=== PATIENT | female | born 1995 | race Two or more races ===

== ENCOUNTER 2017-01-02 14:13 | Inpatient (IN) | payer MEDICAID ==
[~2017-01-02] VITALS: Ht 167.6 cm; Wt 102.2 kg
[2017-01-02 14:58] LABS: Basophils # (auto) 0 uL; DEFINITIVE VIEW TRANSMISSION; Eosinophils # (auto) 0 uL; Hematocrit 44.3 % (36.0-46.0); Hemoglobin 14.5 g/dL (12.2-16.2); Lymphocytes # (auto) 1.2 uL; Lymphocytes % (auto) 6.4 % (10.0-50.0); Mean Corpuscular Hgb Conc. 32.7 g/dL (32.0-36.0); Mean Corpuscular Volume 76.4 fL (80.0-100.0); Mean Platelet Volume 10.2 fL (7.4-10.4); Monocytes # (auto) 0.8 uL; Monocytes % (auto) 4.3 % (0.0-12.0); Neutrophils # (auto) 16.9 uL; Neutrophils % (auto) 89.3 % (37.0-80.0); Platelet Count (auto) 300 10^3/uL (140-450); Red Cell Distribution Width 14.8 % (11.6-16.0); White Blood Cell 18.9 10^3/uL (4.4-10.8)
[2017-01-02] MEDS ORDERED: SODIUM CHLORIDE 0.9% 1,000 ML IVB ONE (15:01)
[2017-01-02] MEDS ORDERED: IBUPROFEN 600 MG TAB PO ONE ×2 (15:14→15:30)
[2017-01-02] MEDS ORDERED: METOCLOPRAMIDE HCL 5MG/ml INJ 2ml VIAL IV ONE (15:15)
[2017-01-02] MEDS ORDERED: NALBUPHINE HCL 10 MG/1ml INJECTION IV ONE (15:15)
[2017-01-02 15:28] LABS: Albumin 3.9 g/dL (3.4-5.0); BUN/Creatinine Ratio 8.8; Bilirubin, Total 0.4 mg/dL (0.2-1.0); Calcium 8.5 mg/dL (8.5-10.1); Potassium 3.5 mmol/L (3.5-5.1)
[2017-01-02 15:35] LABS: Urine Bilirubin Negative (Negative); Urine Color Brown (Yellow); Urine Glucose TRACE mg/dL (Normal); Urine Mucus FEW (None Seen); Urine Nitrite Negative (Negative); Urine RBC 248 /hpf (0 - 4); Urine Squamous Epithelial Cell MANY /hpf (<5); Urine Urobilinogen Normal (Negative)
[2017-01-02 15:38] LABS: Magnesium 2.1 mg/dL (1.6-2.6)
[2017-01-02 15:40] LABS: Urine Blood 3+ /uL (Negative); Urine Ketone 2+ (Negative)
[2017-01-02] MEDS ORDERED: ACETAMINOPHEN 500 MG TAB PO PRN (17:00)
[2017-01-02] MEDS ORDERED: cefTRIAXone 1GM/50ML D5W 50 ML IV ONE ×2 (17:00)
[2017-01-02] MEDS ORDERED: HYDROcodone-ACET 5/325MG TAB PO PRN (17:00)
[2017-01-02] MEDS ORDERED: MORPHINE SULF INJ 2 MG/ML SYRINGE 1ML IV PRN (17:00)
[2017-01-02] MEDS ORDERED: NITROGLYCERIN 0.4 MG SL TAB SL PRN (17:00)
[2017-01-02] MEDS ORDERED: LORazepam 0.5 MG TAB PO PRN (17:00)
[2017-01-02] MEDS ORDERED: PANTOPRAZOLE SODIUM 40 MG/10 ML VIAL IV ONE (18:00)
[2017-01-02] MEDS: HYDROCORTISONE SOD SUCC 100 MG/2ML INJ VIAL IV SCH (18:31)
[2017-01-02] MEDS: FAMOTIDINE (10MG/ML) 2ML VL IV SCH (18:31)
[2017-01-02] MEDS: SODIUM CHLORIDE 0.9% 1,000 ML IV SCH (18:32)
[2017-01-02] MEDS: metroNIDAZOLE 500MG/100ML 100 ML IV SCH ×2 (18:32→23:59)
[2017-01-02 20:00] VITALS: BP 102/62
[2017-01-02 20:23] LABS: Hematocrit 38.8 % (36.0-46.0); Hemoglobin 12.9 g/dL (12.2-16.2)
[2017-01-02] MEDS: MORPHINE SULF INJ 2 MG/ML SYRINGE 1ML IV PRN (21:14)
[2017-01-02 22:37] VITALS: BP 102/62
[2017-01-03] VITALS (7 sets, daily range): BP systolic 94–116; BP diastolic 47–63
[2017-01-03] MEDS: HYDROCORTISONE SOD SUCC 100 MG/2ML INJ VIAL IV SCH ×3 (00:57→17:00)
[2017-01-03] MEDS: TEMAZEPAM 15 MG CAP PO PRN ×2 (01:33→20:37)
[2017-01-03] MEDS: MORPHINE SULF INJ 2 MG/ML SYRINGE 1ML IV PRN ×5 (01:33→20:17)
[2017-01-03 02:14] LABS: Hemoglobin 12.4 g/dL (12.2-16.2)
[2017-01-03] MEDS: FAMOTIDINE (10MG/ML) 2ML VL IV SCH (04:51)
[2017-01-03] MEDS: PROCHLORPERAZINE EDISYLATE 5 MG/ML 2ML VIAL IV PRN ×2 (04:57→10:59)
[2017-01-03 05:48] LABS: Basophils # (auto) 0 uL; DEFINITIVE VIEW TRANSMISSION; Eosinophils # (auto) 0 uL; Hematocrit 36.8 % (36.0-46.0); Hemoglobin 12.6 g/dL (12.2-16.2); Lymphocytes # (auto) 0.6 uL; Mean Corpuscular Hemoglobin 26.1 pg (28.0-32.0); Mean Corpuscular Hgb Conc. 34.1 g/dL (32.0-36.0); Mean Corpuscular Volume 76.5 fL (80.0-100.0); Mean Platelet Volume 10.7 fL (7.4-10.4); Monocytes # (auto) 0.3 uL; Monocytes % (auto) 2.7 % (0.0-12.0); Neutrophils # (auto) 10.8 uL; Neutrophils % (auto) 92.3 % (37.0-80.0); Platelet Count (auto) 219 10^3/uL (140-450); Red Cell Distribution Width 14.8 % (11.6-16.0); White Blood Cell 11.7 10^3/uL (4.4-10.8)
[2017-01-03] MEDS: metroNIDAZOLE 500MG/100ML 100 ML IV SCH (05:54)
[2017-01-03] MEDS: SODIUM CHLORIDE 0.9% 1,000 ML IV SCH ×2 (05:54→14:10)
[2017-01-03 06:55] LABS: Hematocrit 34.4 % (36.0-46.0); Hemoglobin 11.4 g/dL (12.2-16.2)
[2017-01-03] MEDS ORDERED: cefTRIAXone 1GM/50ML D5W 50 ML IV SCH (09:00)
[2017-01-03] MEDS ORDERED: PANTOPRAZOLE SODIUM 40 MG/10 ML VIAL IV SCH (10:00)
[2017-01-03] MEDS ORDERED: GOLYTELY 4L KIT PO ONE (12:00)
[2017-01-03] MEDS ORDERED: POTASSIUM CHL 20MEQ/100ML 100 ML IV ONE (14:30)
[2017-01-03] MEDS ORDERED: ONDANSETRON HCL 4 MG/2 ML VIAL IV PRN (14:30)
[2017-01-03 15:07] LABS: Partial Thromboplastin Time 34.8 sec (22.64-33.71)
[2017-01-03 15:28] LABS: INR 1.22 (0.9-1.15); Prothrombin Time 13.2 sec (9.37-12.3)
[2017-01-03] MEDS: METOCLOPRAMIDE HCL 5MG/ml INJ 2ml VIAL IV SCH (18:27)
[2017-01-03] MEDS: POTASSIUM CHLORIDE 20 MEQ in D5W/LACTATED RINGERS 1,000 ML IV SCH (20:18)
[2017-01-03] MEDS: PANTOPRAZOLE 40 MG TAB PO SCH (21:40)
[2017-01-04] MEDS: METOCLOPRAMIDE HCL 5MG/ml INJ 2ml VIAL IV SCH ×5 (00:01→16:52)
[2017-01-04] MEDS: MORPHINE SULF INJ 2 MG/ML SYRINGE 1ML IV PRN ×2 (00:48→08:45)
[2017-01-04] MEDS: HYDROCORTISONE SOD SUCC 100 MG/2ML INJ VIAL IV SCH ×3 (01:10→16:52)
[2017-01-04 05:00] VITALS: BP 121/69
[2017-01-04 06:10] LABS: Potassium 3.5 mmol/L (3.5-5.1)
[2017-01-04 06:16] LABS: BUN/Creatinine Ratio 10.4; Magnesium 2.4 mg/dL (1.6-2.6)
[2017-01-04] MEDS ORDERED: LIDOCAINE VISCOUS 2% 15ML UD ONE (08:13)
[2017-01-04] MEDS ORDERED: diphenhdrAMINE HCL 50 MG/1 ML VL ONE (08:13)
[2017-01-04] MEDS ORDERED: SODIUM CHLORIDE LOCK 10 ML ONE (08:13)
[2017-01-04 09:00] VITALS: BP 125/70
[2017-01-04] MEDS: PANTOPRAZOLE 40 MG TAB PO SCH (10:00)
[2017-01-04] MEDS: POTASSIUM CHLORIDE 20 MEQ in D5W/LACTATED RINGERS 1,000 ML IV SCH (10:01)
[2017-01-04] MEDS: MIDAZOLAM HCL 5 MG/ML-1ML VIAL ONE ×4 (12:07→12:18)
[2017-01-04] MEDS: fentaNYL CITRATE 100 MCG/2 ML VL ONE ×4 (12:07→12:18)
[2017-01-04] MEDS: SULFASALAZINE 500 MG TAB PO SCH ×2 (14:16→16:53)
[2017-01-04] MEDS ORDERED: SUL500T PO (14:27)
[2017-01-04] MEDS ORDERED: PANT40T PO (14:27)
[2017-01-04 16:21] VITALS: BP 104/53
[2017-01-05] MEDS ORDERED: PANTOPRAZOLE 40 MG TAB PO SCH (10:00)
== END 2017-01-04 17:55 | disposition home or self-care (01) | DRG 241 ==
LOC: ER 14:13 → TELE 14:14 → TELE-WESTW 18:06 → WEST WING 01-03 23:59
PROVIDERS: ADMIT Internal Medicine; ATTEND Hospitalist
PROC: 0DBE8ZX Excision of Large Intestine, Via Natural or Artificial Opening Endoscopic, Diagnostic (ICD-10-PCS; 2017-01-04)
PROC: 0DB68ZX Excision of Stomach, Via Natural or Artificial Opening Endoscopic, Diagnostic (ICD-10-PCS; principal; 2017-01-04 12:05)
PROC: 0DBB8ZX Excision of Ileum, Via Natural or Artificial Opening Endoscopic, Diagnostic (ICD-10-PCS; 2017-01-04 12:05)
DX: K29.80 Duodenitis without bleeding (principal); N10 Acute pyelonephritis; E11.9 Type 2 diabetes mellitus without complications; K50.90 Crohn's disease, unspecified, without complications; K52.9 Noninfective gastroenteritis and colitis, unspecified; E78.5 Hyperlipidemia, unspecified; E86.0 Dehydration; Z82.49 Family history of ischemic heart disease and other diseases of the circulatory system; Z82.5 Family history of asthma and other chronic lower respiratory diseases; Z83.3 Family history of diabetes mellitus; Z87.891 Personal history of nicotine dependence; F32.9 Major depressive disorder, single episode, unspecified
CPT/HCPCS: 36415; 43239; 45380; 71010; 74176; 80048; 80053; 81001; 81025; 82270; 83605; 83690; 83735; 84443; 84702; 85014; 85018; 85025; 85045; 85610; 85652; 85730; 86141; 86850; 86900; 86901; 87040; 87086; 87493; 96361; 96365; 96375; C9113; J0696; J2250; J2405; J3480; J3490

== ENCOUNTER 2017-09-12 17:49 | Emergency (ER) | payer MEDICAID ==
[~2017-09-12] VITALS: Ht 165.1 cm; Wt 104.3 kg
[~2017-09-12 17:49] MED LIST: PANT40T PO; SUL500T PO
[2017-09-12 18:02] VITALS: BP 99/64
== END 2017-09-12 21:35 | disposition home or self-care (01) ==
LOC: ER 17:49
DX: J02.9 Acute pharyngitis, unspecified (principal); J45.909 Unspecified asthma, uncomplicated; I10 Essential (primary) hypertension

== ENCOUNTER 2018-10-29 08:13 | Emergency (ER) | payer MEDICAID ==
[~2018-10-29] VITALS: Ht 175.3 cm; Wt 101.2 kg
[2018-10-29 08:53] LABS: Urine Bacteria FEW /hpf (None Seen); Urine Blood TRACE /uL (Negative); Urine Mucus FEW (None Seen); Urine Specific Gravity 1.009 (1.001-1.035); Urine WBC 1 /hpf (0 - 5)
[2018-10-29 09:09] LABS: Eosinophils # (auto) 0 uL; Eosinophils % (auto) 0.3 % (0.0-7.0); Hematocrit 37.4 % (36.0-46.0); Lymphocytes # (auto) 1.9 uL; Monocytes # (auto) 0.5 uL; Neutrophils # (auto) 9.1 uL; White Blood Cell 11.6 10^3/uL (4.4-10.8)
[2018-10-29 09:10] LABS: Basophils # (auto) 0.1 uL; Basophils % (auto) 0.4 % (0.0-2.0); Hemoglobin 12.4 g/dL (12.2-16.2); Lymphocytes % (auto) 16.2 % (10.0-50.0); Mean Corpuscular Hemoglobin 24.6 pg (28.0-32.0); Mean Corpuscular Hgb Conc. 33.2 g/dL (32.0-36.0); Mean Corpuscular Volume 74.2 fL (80.0-100.0); Monocytes % (auto) 4.3 % (0.0-12.0); Neutrophils % (auto) 78.8 % (37.0-80.0); Nucleated Red Blood Cells % 0.1 %; Platelet Count (auto) 299 10^3/uL (140-450); Red Blood Cells 5.03 10^6/uL (4.0-5.20); Red Cell Distribution Width 15.1 % (11.8-14.3)
[2018-10-29 09:25] LABS: Albumin 3.8 g/dL (3.4-5.0); BUN/Creatinine Ratio 10.4; Calcium 8.4 mg/dL (8.5-10.1); Potassium 3.5 mmol/L (3.5-5.1)
[2018-10-29 09:28] LABS: Bilirubin, Total 0.4 mg/dL (0.2-1.0); Total Protein 8.1 g/dL (6.4-8.2)
[2018-10-29] MEDS ORDERED: SODIUM CHLORIDE 0.9% 1,000 ML IVB ONE (10:46)
[2018-10-29] MEDS ORDERED: PROCHLORPERAZINE EDISYLATE 5 MG/ML 2ML VIAL IV ONE (11:00)
[2018-10-29 11:28] LABS: Magnesium 2.4 mg/dL (1.6-2.6)
[2018-10-29 14:40] VITALS: BP 108/69
== END 2018-10-29 15:02 | disposition home or self-care (01) ==
LOC: ER 08:13
DX: F12.10 Cannabis abuse, uncomplicated (principal); R11.2 Nausea with vomiting, unspecified; R19.7 Diarrhea, unspecified; K21.9 Gastro-esophageal reflux disease without esophagitis; I10 Essential (primary) hypertension; E11.9 Type 2 diabetes mellitus without complications; J45.909 Unspecified asthma, uncomplicated
CPT/HCPCS: 36415; 76705; 80053; 81001; 81025; 83690; 83735; 85025; 96361; 96374; 99284; J0780; J7030

== ENCOUNTER 2019-05-30 16:11 | Emergency (ER) | payer MEDICAID ==
[~2019-05-30] VITALS: Ht 175.3 cm; Wt 89.8 kg
[2019-05-30 16:30] VITALS: BP 116/82
[2019-05-30] MEDS ORDERED: KETOROLAC TROMETH 60MG/2ML VIAL IM ONE (20:30)
[2019-05-30] MEDS ORDERED: METHOCARBAMOL 500 MG TAB PO ONE (22:32)
== END 2019-05-30 22:51 | disposition home or self-care (01) ==
LOC: ER 16:15
DX: M54.6 Pain in thoracic spine (principal); M79.18 Myalgia, other site; J45.909 Unspecified asthma, uncomplicated; E11.9 Type 2 diabetes mellitus without complications; K21.9 Gastro-esophageal reflux disease without esophagitis; I10 Essential (primary) hypertension
CPT/HCPCS: 71101; 72070; 96372; 99283; J1885

== ENCOUNTER → 2020-06-07 | Emergency (ER) | payer MEDICAID ==
[~2020-06-07] VITALS: Ht 175.3 cm; Wt 82.6 kg
[~2020-06-07] MED LIST changes: +ACETAMINOPHEN 325 MG TAB PO ONE; +ACETAMINOPHEN 500 MG TAB PO ONE; +SODIUM CHLORIDE 0.9% 1,000 ML IV ONE; +cefTRIAXone 1GM/50ML D5W 50 ML IV ONE
[2020-06-07 16:04] LABS: Basophils % (auto) 0.6 % (0.0-2.0); Eosinophils # (auto) 0 10 ^3/uL (0-0.8); Lymphocytes # (auto) 2.2 10 ^3/uL (0.4-5.4); Monocytes # (auto) 0.5 10 ^3/uL (0-1.3); White Blood Cell 8.6 10^3/uL (4.4-10.8)
[2020-06-07 16:06] LABS: Basophils # (auto) 0 10 ^3/uL (0-0.2); Eosinophils % (auto) 0.5 % (0.0-7.0); Hematocrit 35.5 % (36.0-46.0); Hemoglobin 11.6 g/dL (12.2-16.2); Lymphocytes % (auto) 25.5 % (10.0-50.0); Mean Corpuscular Hemoglobin 25.1 pg (28.0-32.0); Mean Corpuscular Hgb Conc. 32.5 g/dL (32.0-36.0); Monocytes % (auto) 5.8 % (0.0-12.0); Neutrophils # (auto) 5.8 10 ^3/uL (1.6-8.6); Neutrophils % (auto) 67.6 % (37.0-80.0); Nucleated Red Blood Cells % 0.1 %; Platelet Count (auto) 272 10^3/uL (140-450); Red Blood Cells 4.61 10^6/uL (4.0-5.20); Red Cell Distribution Width 15.1 % (11.8-14.3)
[2020-06-07 16:16] LABS: Albumin 3.5 g/dL (3.4-5.0); BUN/Creatinine Ratio 5.8; Calcium 8.7 mg/dL (8.5-10.1); Potassium 3.5 mmol/L (3.5-5.1)
[2020-06-07 16:19] LABS: Bilirubin, Total 0.4 mg/dL (0.2-1.0); Total Protein 7.4 g/dL (6.4-8.2)
[2020-06-07 16:22] LABS: INR 1.07 (0.9-1.15); Partial Thromboplastin Time 28.4 sec (23.0-31.2)
[2020-06-07 18:34] LABS: Urine Bacteria FEW /hpf (None Seen); Urine Blood 3+ /uL (Negative); Urine Mucus FEW (None Seen); Urine Specific Gravity 1.014 (1.001-1.035); Urine WBC 9 /hpf (0 - 5)
[2020-06-07 18:53] LABS: Alcohol, Urine < 3.0 mg/dL (0-10); Amphetamine Screen, Urine NEGATIVE (NEGATIVE); Barbiturate Scree,Urine NEGATIVE (NEGATIVE); Benzodiazephine Screen, Urine NEGATIVE (NEGATIVE); Cannabinoid Screen, Urine NEGATIVE (NEGATIVE); Cocaine Screen, Urine NEGATIVE (NEGATIVE); Opiate Scree,Urine NEGATIVE (NEGATIVE); Phencyclidine Screen, Urine NEGATIVE (NEGATIVE)
[2020-06-07 20:54] VITALS: BP 132/64
== END | disposition home or self-care (01) ==
LOC: ER 15:17
DX: O03.9 Complete or unspecified spontaneous abortion without complication (principal); O99.511 Diseases of the respiratory system complicating pregnancy, first trimester; J20.9 Acute bronchitis, unspecified; J45.909 Unspecified asthma, uncomplicated; O99.011 Anemia complicating pregnancy, first trimester; Z3A.01 Less than 8 weeks gestation of pregnancy
CPT/HCPCS: 36415; 76801; 80053; 80307; 81001; 84702; 85025; 85610; 85730; 86850; 86900; 86901; 96365; 96366; 99285; J0696

== ENCOUNTER 2021-05-25 23:05 | Emergency (ER) | payer MEDICAID ==
[~2021-05-25] VITALS: Ht 175.3 cm; Wt 107.5 kg
[2021-05-25 23:05] VITALS: BP 143/77
[~2021-05-25 23:05] MED LIST changes: -ACETAMINOPHEN 325 MG TAB PO ONE; -ACETAMINOPHEN 500 MG TAB PO ONE; -SODIUM CHLORIDE 0.9% 1,000 ML IV ONE; -cefTRIAXone 1GM/50ML D5W 50 ML IV ONE
[2021-05-26 00:25] LABS: Urine Bacteria FEW /hpf (None Seen); Urine Blood TRACE /uL (Negative); Urine Specific Gravity 1.006 (1.001-1.035); Urine WBC 2 /hpf (0 - 5)
[2021-05-26] MEDS ORDERED: methylPREDNISolone SOD SUCC 125 MG/2 ML VL IV ONE (00:30)
[2021-05-26] MEDS ORDERED: ONDANSETRON ODT 4 MG TAB PO ONE (01:15)
== END 2021-05-26 02:16 | disposition home or self-care (01) ==
LOC: ER 23:05
DX: R51.9 Headache, unspecified (principal); J45.909 Unspecified asthma, uncomplicated; E78.5 Hyperlipidemia, unspecified; Z86.2 Personal history of diseases of the blood and blood-forming organs and certain disorders involving the immune mechanism
CPT/HCPCS: 36415; 70450; 81001; 81025; 82962; 85652; 86141; 93005; 96374; 99285; J2930; Q0162

== ENCOUNTER 2022-09-09 04:09 | Emergency (ER) | payer MEDICAID ==
[~2022-09-09] VITALS: Ht 175.3 cm; Wt 112.7 kg
[2022-09-09 04:27] VITALS: BP 125/87
[2022-09-09 04:57] LABS: Basophils # (auto) 0.1 10 ^3/uL (0-0.2); Eosinophils # (auto) 0 10 ^3/uL (0-0.8); Eosinophils % (auto) 0.2 % (0.0-7.0); Lymphocytes # (auto) 1.4 10 ^3/uL (0.4-5.4); Mean Corpuscular Volume 73.3 fL (80.0-100.0); Monocytes # (auto) 0.8 10 ^3/uL (0-1.3); Neutrophils # (auto) 4.3 10 ^3/uL (1.6-8.6); White Blood Cell 6.6 10^3/uL (4.4-10.8)
[2022-09-09 04:59] LABS: Basophils % (auto) 0.9 % (0.0-2.0); Lymphocytes % (auto) 21.5 % (10.0-50.0); Mean Corpuscular Hemoglobin 23.8 pg (28.0-32.0); Mean Corpuscular Hgb Conc. 32.5 g/dL (32.0-36.0); Monocytes % (auto) 12.3 % (0.0-12.0); Neutrophils % (auto) 65.1 % (37.0-80.0); Red Blood Cells 5.46 10^6/uL (4.0-5.20); Red Cell Distribution Width 15.6 % (11.8-14.3)
[2022-09-09 05:17] LABS: Albumin 3.8 g/dL (3.4-5.0); Calcium 8.6 mg/dL (8.5-10.1); Potassium 3.6 mmol/L (3.5-5.1)
[2022-09-09 05:20] LABS: BUN/Creatinine Ratio 8.3; Bilirubin, Total 0.3 mg/dL (0.2-1.0); Total Protein 8.5 g/dL (6.4-8.2)
[2022-09-09 05:29] LABS: Urine Bacteria FEW /hpf (None Seen); Urine Blood 3+ /uL (Negative); Urine Mucus FEW (None Seen); Urine Specific Gravity 1.035 (1.001-1.035); Urine WBC 9 /hpf (0 - 5)
[2022-09-09] MEDS ORDERED: AZITHROMYCIN 250 MG TAB PO ONE (05:45)
[2022-09-09] MEDS ORDERED: predniSONE 20 MG TAB PO ONE (05:45)
[2022-09-09] MEDS ORDERED: OSELTAMIVIR 75 MG CAP PO ONE (06:15)
[2022-09-09] MEDS ORDERED: AZIT250T9 PO (06:16)
[2022-09-09] MEDS ORDERED: OSEL75CA5 PO (06:16)
[2022-09-09] MEDS ORDERED: ALBUAER3 IN (06:16)
[2022-09-09] MEDS ORDERED: PRED20TA2 PO (06:16)
[2022-09-09] MEDS ORDERED: predniSONE 20 MG TAB ONE (07:19)
== END 2022-09-09 07:34 | disposition home or self-care (01) ==
LOC: ER 04:09
DX: J10.1 Influenza due to other identified influenza virus with other respiratory manifestations (principal); Z79.899 Other long term (current) drug therapy; Z20.822 Contact with and (suspected) exposure to COVID-19
CPT/HCPCS: 36415; 71045; 80053; 81001; 81025; 84484; 85025; 87426; 87804; 93005; 99285; J7512

== ENCOUNTER 2023-05-25 16:57 | Emergency (ER) | payer MEDICAID ==
[~2023-05-25] VITALS: Ht 175.3 cm; Wt 103.1 kg
[~2023-05-25 16:57] MED LIST changes: +ALBUAER3 IN; +AZIT-43 PO; +OSEL75CA5 PO; +PRED20TA2 PO
[2023-05-25] MEDS ORDERED: SODIUM CHLORIDE 0.9% 1,000 ML IV ONE (18:00)
[2023-05-25] MEDS ORDERED: ONDANSETRON HCL 4 MG/2 ML VIAL IV ONE (18:00)
[2023-05-25 18:39] LABS: Basophils # (auto) 0 10 ^3/uL (0-0.2); Basophils % (auto) 0.3 % (0.0-2.0); Eosinophils # (auto) 0 10 ^3/uL (0-0.8); Mean Corpuscular Hemoglobin 25.2 pg (28.0-32.0); Mean Corpuscular Hgb Conc. 33.5 g/dL (32.0-36.0); Mean Corpuscular Volume 75.2 fL (80.0-100.0); Monocytes # (auto) 0.3 10 ^3/uL (0-1.3); Nucleated Red Blood Cells % 0.1 %
[2023-05-25 18:40] LABS: Hematocrit 43.5 % (36.0-46.0); Hemoglobin 14.6 g/dL (12.2-16.2); Lymphocytes # (auto) 1.4 10 ^3/uL (0.4-5.4); Lymphocytes % (auto) 13.4 % (10.0-50.0); Monocytes % (auto) 2.7 % (0.0-12.0); Neutrophils % (auto) 83.6 % (37.0-80.0); Red Blood Cells 5.79 10^6/uL (4.0-5.20); Red Cell Distribution Width 15.5 % (11.8-14.3); White Blood Cell 10.8 10^3/uL (4.4-10.8)
[2023-05-25 19:01] LABS: Alanine Aminotransferase 14 U/L (7-40); Alkaline Phosphatase 91 U/L (46-116); Anion Gap 11.9 (5-15); Aspartate Aminotransferase 17 U/L (13-40); BUN/Creatinine Ratio 6.5 (10.0-20.0); Blood Urea Nitrogen 6 mg/dL (9-23); Calcium 9.5 mg/dL (8.5-10.1); Carbon Dioxide 22.1 mmol/L (20-30); Chloride 101 mmol/L (98-107); Glucose 94 mg/dL (74-106); Potassium 3.3 mmol/L (3.5-5.1); Sodium 135 mmol/L (136-145)
[2023-05-25 19:02] LABS: Bilirubin, Total 0.4 mg/dL (0.2-1.0); Total Protein 8.3 g/dL (5.7-8.2)
[2023-05-25 19:54] LABS: Urine Bacteria FEW /hpf (None Seen); Urine Blood 3+ /uL (Negative); Urine Budding Yeast MODERATE /hpf (None Seen); Urine Clarity HAZY (Clear); Urine Color Red (Yellow); Urine Mucus FEW (None Seen); Urine Protein, UAD 3+ (Negative); Urine Specific Gravity 1.029 (1.001-1.035); Urine Urobilinogen Normal (Negative); Urine WBC 26 /hpf (0 - 5)
[2023-05-25] MEDS ORDERED: IOHEXOL 350 MG/ML 100ML IJ ONE (20:21)
[2023-05-25] MEDS ORDERED: NITR-87 PO (21:07)
[2023-05-25] MEDS ORDERED: cefTRIAXone 1GM/50ML D5W 50 ML IV ONE (21:15)
[2023-05-25 22:53] VITALS: BP 117/68; PULSE 79; RESP 19; TEMP 98.6; O2SAT 100
== END 2023-05-25 22:53 | disposition home or self-care (01) ==
LOC: ER 16:57
DX: N39.0 Urinary tract infection, site not specified (principal); R10.2 Pelvic and perineal pain; R11.2 Nausea with vomiting, unspecified; Z86.2 Personal history of diseases of the blood and blood-forming organs and certain disorders involving the immune mechanism; Z79.2 Long term (current) use of antibiotics; Z79.899 Other long term (current) drug therapy
CPT/HCPCS: 36415; 74177; 80053; 81001; 81025; 84702; 85025; 86308; 96361; 96365; 96375; 99285; J0696; J2405; J7030; Q9967